=== PATIENT | female | born 1990 | race Caucasian/White ===

== ENCOUNTER 2016-12-18 00:02 | Emergency (ER) | payer OTHER ==
[~2016-12-18] VITALS: Ht 162.6 cm; Wt 54.5 kg
[~2016-12-18 00:02] MED LIST: ACET50TA PO; IBUP60TA PO; PRENTAB20 PO
[2016-12-18] MEDS ORDERED: birth control patch TD (00:09)
[2016-12-18] MEDS ORDERED: GI COCKTAIL 50ML BTL(HYOSCYAMINE/MAALOX/LIDOCAINE VISCOUS)(1:3:1) PO ONE (01:00)
[2016-12-18 01:27] LABS: BASO % 0.2 % (0.0-1.0); EOS # 0.1 K/mm3 (0.0-0.50); EOS % 0.8 % (0.0-3.0); LARGE UNSTAINED CELL # 0.1 K/mm3 (0.0-0.4); LARGE UNSTAINED CELL % 0.6 % (0.0-4.0); LYMPH # 1.9 K/mm3 (1.5-6.5); LYMPH % 12.5 % (24.0-44.0); MEAN CORPUSCULAR HEMOGLOBIN 32.1 pg (27.0-33.0); MEAN CORPUSCULAR HGB CONC 34.3 g/dl (32.0-36.5); MEAN CORPUSCULAR VOLUME 93.5 fl (80.0-96.0); MONO # 0.5 K/mm3 (0.0-0.8); MONO % 3.6 % (0.0-5.0); NEUTROPHILS % 82.4 % (36.0-66.0); PLATELET COUNT, AUTOMATED 177 k/mm3 (150-450); WHITE BLOOD COUNT 14.6 K/mm3 (4.0-10.0)
[2016-12-18 01:41] LABS: ALBUMIN 3.6 GM/DL (3.2-5.2); ALBUMIN/GLOBULIN RATIO 0.88 (1.00-1.93); ALKALINE PHOSPHATASE 83 U/L (45-117); ALT/SGPT 25 U/L (12-78); AMYLASE 57 U/L (25-115); ANION GAP 4 MEQ/L (8-16); AST/SGOT 27 U/L (15-37); BILIRUBIN,DIRECT 0.2 MG/DL (0.0-0.2); BILIRUBIN,TOTAL 0.5 MG/DL (0.2-1.0); BLOOD UREA NITROGEN 15 MG/DL (7-18); CALCIUM LEVEL 9.4 MG/DL (8.5-10.1); CARBON DIOXIDE LEVEL 30 MEQ/L (21-32); CHLORIDE LEVEL 106 MEQ/L (98-107); CREATININE FOR GFR 0.94 MG/DL (0.55-1.02); GLOMERULAR FILTRATION RATE > 60.0 (>60); GLUCOSE, FASTING 101 MG/DL (70-105); POTASSIUM SERUM 3.8 MEQ/L (3.5-5.1); SODIUM LEVEL 140 MEQ/L (136-145); TOTAL PROTEIN 7.7 GM/DL (6.4-8.2)
[2016-12-18] MEDS ORDERED: MIRA3350 PO (01:49)
[2016-12-18] MEDS ORDERED: PEPC1TAB4 PO (01:49)
[2016-12-18 01:57] VITALS: BP 112/67
--- NOTE | 2016-12-18 09:43 | REP ---
Acute abdominal series series including PA chest and supine upright abdomen: PA chest: There are no comparisons. The lung jamison are clear. Cardiac size is normal. The kd, mediastinum, and bony thorax are unremarkable. There is no free subdiaphragmatic air. Negative PA chest. Abdomen, supine and upright views: Comparison is 2015. There are calcifications inferolaterally in the pelvis on the left, unchanged, likely phleboliths. The two calcifications noted near the sacrum on the left previously are no longer identified. The bowel gas pattern is normal. Skeletal structures and soft tissues otherwise are. Impression: Normal bowel gas pattern. Signed by Laurent Bello MD 12/18/2016 08:02 A
--- NOTE | 2016-12-18 20:56 | ECGEPIP ---
Stationary ECG Study [facility] - ED Test Date: 2016-12-18 Pat Name: HARRY BEY Department: Room: - Gender: F Assistant Banquet Manager: yessenia : 1990 Requested By: MCKENZIE PUCKETT Order Number: [id number] Reading MD: Jamila Valadez Measurements Intervals [place] Rate: 83 P: 20 FL: 133 QRS: 81 QRSD: 86 T: 54 QT: 352 QTc: 415 Interpretive Statements SINUS RHYTHM NO PRIOR FOR COMPARISON Electronically Signed On 12-18-2016 20:56:39 EDT by Jamila Valadez
== END 2016-12-18 01:58 | disposition home or self-care (01) ==
LOC: M ED 00:02
DX: K52.9 Noninfective gastroenteritis and colitis, unspecified (principal); Z87.442 Personal history of urinary calculi; F17.200 Nicotine dependence, unspecified, uncomplicated; Z79.3 Long term (current) use of hormonal contraceptives; Z79.899 Other long term (current) drug therapy

== ENCOUNTER → 2018-01-13 | Outpatient (CLI) | payer OTHER | LOC: M RAD 11:09 | DX: Z36.9 Encounter for antenatal screening, unspecified (principal); Z3A.18 18 weeks gestation of pregnancy | CPT/HCPCS: 76811 ==